=== PATIENT | female | born 1970 | race American Indian/Alaskan Native ===

== ENCOUNTER 2023-05-06 16:40 | Outpatient (CLI) | payer BC, SELFPAY | END 2023-05-06 16:41 | disposition home or self-care (01) | LOC: NFLDREF 16:41 | PROVIDERS: PCP Internal Medicine; Visit Provider Internal Medicine | DX: Z00.00 Encounter for general adult medical examination without abnormal findings (principal); E06.3 Autoimmune thyroiditis | CPT/HCPCS: 84443 ==

== ENCOUNTER 2023-05-15 06:59 | Outpatient (CLI) | payer BC, SELFPAY ==
--- NOTE | 2023-05-15 07:15 | CRLHL7_ITS ---
For Patients: As a result of the Century Cures Act, medical imaging exams and procedure reports are released immediately into your electronic medical record. You may view this report before your referring provider. If you have questions, please contact your health care provider. INDICATION: RUQ PAIN COMPARISON: none TECHNIQUE: Real time hodges scale imaging and color Doppler analysis was performed of the right upper quadrant. FINDINGS: The patient`s liver is of normal size and has increased echogenicity. There is a normal appearance of the hepatic IVC and proximal abdominal aorta. There is no evidence of ascites. The gallbladder is of normal size and there is no evidence of intraluminal stones or sludge. The gallbladder wall measures 2.0 mm in thickness. The common bile duct is of normal size and measures 6.0 mm in diameter at the level of the elizabeth hepatis. Hypoechoic solid structure adjacent to or involving the pancreatic head measuring 2.2 x 1.4 x 1.9 cm. There is no evidence of a stone or hydronephrosis within the right kidney. The right kidney measures 10.1 cm in length. IMPRESSION: Possible pancreatic head mass measuring 2.2 cm. MRI recommended for further evaluation. Gallbladder normal. Mild hepatic steatosis. Dictated by Santos Mullen MD @ 05/15/2023 11:55:27 AM (Electronically Signed)
== END 2023-05-15 07:00 | disposition home or self-care (01) ==
LOC: US 06:59
PROVIDERS: PCP Internal Medicine; Visit Provider Internal Medicine
DX: R10.11 Right upper quadrant pain (principal); K76.0 Fatty (change of) liver, not elsewhere classified
CPT/HCPCS: 76705

== ENCOUNTER 2023-05-25 17:39 | Outpatient (CLI) | payer BC, SELFPAY ==
--- NOTE | 2023-05-25 18:15 | CRLHL7_ITS ---
For Patients: As a result of the Century Cures Act, medical imaging exams and procedure reports are released immediately into your electronic medical record. You may view this report before your referring provider. If you have questions, please contact your health care provider. INDICATION: Pancreatic head abnormality. TECHNIQUE: Abdominal MRI. T1, T2 weighted and postcontrast T1 weighted imaging. Diffusion weighted imaging. Contrast: 20 cc intravenous gadolinium. COMPARISON: Ultrasound abdomen May 15, 2023. FINDINGS: Pancreas: No mass lesion. The duct is normal caliber. Liver: Non cirrhotic morphology. No mass lesion. Normal signal intensity. Gallbladder and biliary tree: Unremarkable normal caliber. Spleen, adrenal glands, and kidneys: Unremarkable. Miscellaneous: No ascites. No suspicious lymph node enlargement. Large paraesophageal hiatal hernia. IMPRESSION : 1. Unremarkable MRI of the pancreas. 2. No additional suspicious abnormalities. 3. There is a large paraesophageal hiatal hernia. Dictated by Asad Dave MD @ 05/30/2023 2:04:17 PM (Electronically Signed)
== END 2023-05-25 17:40 | disposition home or self-care (01) ==
LOC: MRI 17:41
PROVIDERS: PCP Internal Medicine; Visit Provider Internal Medicine
DX: K86.89 Other specified diseases of pancreas (principal)
CPT/HCPCS: 74183; A9575

== ENCOUNTER 2023-06-15 11:29 | Outpatient (CLI) | payer BC, SELFPAY ==
--- NOTE | 2023-06-15 12:29 | W.ANESCHARGE ---
Anesthesia Charges Start Date/Time Anesthesia Start Date: 06/15/23 Anesthesia Start Time: 12:03 Stop Date/Time Anesthesia Stop Date: 06/15/23 Anesthesia Stop Time: 12:20
== END 2023-06-15 11:30 | disposition home or self-care (01) ==
LOC: OP CLINIC 11:30
PROVIDERS: PCP Internal Medicine; Visit Provider Internal Medicine
DX: R10.13 Epigastric pain (principal); K44.9 Diaphragmatic hernia without obstruction or gangrene; K29.70 Gastritis, unspecified, without bleeding; R12 Heartburn
CPT/HCPCS: 00731; 43239; 88305; 88342; J2704

== ENCOUNTER 2023-08-25 15:47 | Emergency (ER) | payer BC, SELFPAY ==
[2023-08-25 15:52] VITALS: BP 168/101; PULSE 109; RESP 18; TEMP 37.2; O2SAT 96; BMI 37.8
--- NOTE | 2023-08-25 15:57 | ED.GENADULT ---
HPI - General Adult General Chief complaint: Epistaxis/Nosebleed Stated complaint: Nose won't stop bleeding Time Seen by Provider: 08/25/23 15:57 History of Present Illness HPI narrative: bloody nose that started 90 minutes ago 53-year-old woman presenting to the emergency department along with significant other with concern of nose bleed. Began apparently in the left nostril and went to the right and has been pouring out of her mouth. Has been bleeding now for at least an hour. She does have a headache and is feeling somewhat lightheaded. Notes a history of uncontrolled or elevated blood pressures. 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 Is not short of breath. Further questioning later reveals that she has been seen for a workup for hypertensive urgency/emergency in the emergency department. Blood pressures seem to have been elevated since diagnosis of COVID. Suspected possibly also be related to recently diagnosed large paraesophageal hiatal hernia. This does also cause her to vomit frequently. Related Data Home Medications Medication Instructions Recorded Confirmed albuterol sulfate 90 mcg/actuation 2 puff inhalation Q6H PRN wheezing 05/06/23 06/10/23 aerosol inhaler conjugated estrogens 0.3 mg tablet See Rx Instructions PO QDAY 05/06/23 06/10/23 (Premarin) famotidine 20 mg tablet 20 mg PO BID 05/06/23 06/10/23 hydrochlorothiazide 25 mg tablet 25 mg PO DAILY 05/06/23 06/10/23 levothyroxine 100 mcg tablet 100 mcg PO DAILY 05/06/23 06/10/23 lisinopril 40 mg tablet 40 mg PO DAILY 05/06/23 06/10/23 omeprazole 20 mg tablet,delayed 20 mg PO BID 05/06/23 06/10/23 release thyroid (pork) 90 mg tablet 90 mg PO DAILY 05/06/23 06/10/23 ([place] Thyroid) Previous Rx's Medication Instructions Recorded amlodipine 5 mg tablet 5 mg PO QDAY #30 tabs 05/06/23 pantoprazole 40 mg tablet,delayed 40 mg PO BID #90 tabs 06/10/23 release (Protonix) Allergies Allergy/AdvReac Type Severity Reaction Status Date / Time aspirin Allergy Severe Anaphylaxis Verified 06/10/23 16:23 bee venom protein (honey bee) Allergy Severe Anaphylaxis Verified 06/10/23 16:23 Penicillins Allergy Severe Anaphylaxis Verified 06/10/23 16:23 sumatriptan [From Imitrex] Allergy Severe Anaphylaxis Verified 06/10/23 16:23 penicillin V Allergy Intermediate Hives Verified 06/10/23 16:23 Review of Systems Status of ROS: Reports: 6 or more systems reviewed and unremarkable except as noted in History and below PFSH PFSH Medical History Gastroesophageal reflux disease ?K21.9 - Gastro-esophageal reflux disease without esophagitis (ICD-10) Pancreatic mass ?K86.89 - Other specified diseases of pancreas (ICD-10) RUQ pain ?R10.11 - Right upper quadrant pain (ICD-10) Celiac sprue ?K90.0 - Celiac disease (ICD-10) Vasomotor symptoms due to menopause ?N95.1 - Menopausal and female climacteric states (ICD-10) Urinary incontinence ?R32 - Unspecified urinary incontinence (ICD-10) Migraine headache ?G43.909 - Migraine, unspecified, not intractable, without status migrainosus (ICD-10) Irritable bowel syndrome ?K58.9 - Irritable bowel syndrome without diarrhea (ICD-10) Incomplete emptying of bladder ?R33.9 - Retention of urine, unspecified (ICD-10) Hypertension ?I10 - Essential (primary) hypertension (ICD-10) History of vitamin D deficiency ?Z86.39 - Personal history of other endocrine, nutritional and metabolic disease (ICD-10) Ovidio's thyroiditis ?E06.3 - Autoimmune thyroiditis (ICD-10) Disturbance in sleep behavior ?G47.9 - Sleep disorder, unspecified (ICD-10) Body mass index (BMI) of 35.0 to 39.9 with comorbidity in adult Asthma ?J45.909 - Unspecified asthma, uncomplicated (ICD-10) Surgical History Cystocele with rectocele ?N81.10 - Cystocele, unspecified (ICD-10) ?N81.6 - Rectocele (ICD-10) Status post surgical removal of ganglion cyst ?Z98.890 - Other specified postprocedural states (ICD-10) History of total vaginal hysterectomy (TVH) ?Z90.710 - Acquired absence of both cervix and uterus (ICD-10) History of tonsillectomy ?Z90.89 - Acquired absence of other organs (ICD-10) History of pubovaginal sling ?Z96.0 - Presence of urogenital implants (ICD-10) History of colonoscopy with polypectomy ?Z98.890 - Other specified postprocedural states (ICD-10) ?Z86.010 - Personal history of colonic polyps (ICD-10) History of bilateral breast reduction surgery ?Z98.890 - Other specified postprocedural states (ICD-10) History of appendectomy ?Z90.49 - Acquired absence of other specified parts of digestive tract (ICD-10) Family History Sister Thyroid disease Mother Thyroid disease Heart disease High blood pressure Breast cancer, Onset Age: 27 Osteoporosis Maternal Grandmother Thyroid disease Father High blood pressure Diabetes Sister High blood pressure Paternal Grandmother Breast cancer, Onset Age: 60 Social History Smoking Status: Never smoker Do you use any of these nicotine containing products: None Second hand tobacco smoke exposure: No How often do you have a drink containing alcohol: never How often do you have six or more drinks on one occasion: Never AUDIT-C Alcohol total score: 0 Non-prescribed substance use: denies use Little interest or pleasure in doing things: not at all Feeling down, depressed, or hopeless: not at all service: No Exam Narrative: Exam Narrative: I enter the room to find is makes holding a paper towel I think to her nose bending over a trash bag full of blood-stained tissues. Appears to be breathing easily other than sounding congested. Has blood in both nostrils. Reapplied her finger pressure and then ultimately packed with lightly water soaked cotton balls. Cranial nerves 2-12 are intact. Heart is tachycardic. Pending reassessment Upon reassessment there is no active bleeding in the right nostril. There is along the anterior aspect of the septum of the left nostril oozing of blood. Is difficult to visualize initially. Tabs further with cotton ball and then applied silver nitrate followed by compression with cocaine soaked cotton balls. On reexamination small amount of oozing remained which was touched with silver nitrate again. Good control of bleeding ultimately achieved. Never visualized any bleeding in the posterior oropharynx. Unfortunately did have some vomiting not inconsistent with what she has been experiencing thought to be related to this hiatal hernia. Probably triggered by blood ingestion. Did cough up a couple smaller clots as well. Had been given Zofran prior to vomiting. Did attempt to treat blood pressure with another dose of amlodipine as did remain high during time in the ER. I believe this was vomited up. Recommended to take another dose when got home. Const: Vital Signs, click to edit/add: Vital Signs - 24 hr 08/25/23 15:52 08/25/23 18:17 Temperature 99.0 F Pulse Rate [Right Pulse Oximeter] 109 H Respiratory Rate 18 Blood Pressure [Ri ght Upper Arm] 168/101 H 150/110 H Pulse Oximetry 96 Oxygen Delivery Me thod Room Air Documenting provider has reviewed patient's vital signs: yes Course Vital Signs Vital signs: Initial Vital Signs Temperature 99.0 F 08/25/23 15:52 Temperature Source Temporal Artery Scan 08/25/23 15:52 Pulse Rate 109 H 08/25/23 15:52 Respiratory Rate 18 08/25/23 15:52 Blood Pressure 168/101 H 08/25/23 15:52 Blood Pressure Mean 123 H 08/25/23 15:52 Blood Pressure Position Sitting 08/25/23 15:52 Pulse Oximetry 96 08/25/23 15:52 Oxygen Delivery Method Room Air 08/25/23 15:52 Vital Signs Temperature 99.0 F 08/25/23 15:52 Pulse Rate 109 H 08/25/23 15:52 Respiratory Rate 18 08/25/23 15:52 Blood Pressure 168/101 H 08/25/23 15:52 Pulse Oximetry 96 08/25/23 15:52 Oxygen Delivery Method Room Air 08/25/23 15:52 Temperature 99.0 F 08/25/23 15:52 Pulse Rate 109 H 08/25/23 15:52 Respiratory Rate 18 08/25/23 15:52 Blood Pressure 150/110 H 08/25/23 18:17 Pulse Oximetry 96 08/25/23 15:52 Oxygen Delivery Method Room Air 08/25/23 15:52 Medications Administered Medications: Discontinued Medications Generic Name Dose Route Start Last Admin Trade Name Freq PRN Reason Stop Dose Admin Amlodipine Besylate 5 mg 08/25/23 17:53 08/25/23 18:09 Amlodipine 5 Mg Tablet PO 08/25/23 17:54 5 mg ONCE ONE Administration Cocaine HCl 4 ml 08/25/23 16:15 08/25/23 16:35 Cocaine Hcl 4 % 4 Ml Solution NOSTRIL-B 08/25/23 16:16 4 ml ONCE ONE Administration Ondansetron HCl 4 mg 08/25/23 17:36 08/25/23 18:09 Ondansetron Odt 4 Mg Tab PO 08/25/23 17:37 4 mg ONCE ONE Administration Medical Decision Making MDM Narrative Medical decision making narrative: Over time in the emergency department does develop headache/pain around her left eye. Typical headaches for her with migraine diagnosis for which she takes a believe Zomig and Topamax? tend to be more frontal? Re-examination reveals tense and sore diffuse paracervical and trapezial musculature. Given cotton balls and nose clamp for home. See patient discharge plan for further discussion. Discharge Plan Discharge Clinical Impression: Anterior epistaxis, Muscle tension pain, High blood pressure Patient Disposition: Home w/ Parent or Adult Condition: Improved Additional Instructions: Do your best to stay well-hydrated. See handout for stretches for upper back pain/tension that might be beneficial to do daily or twice daily. If this bleeding recurs, soak cotton ball with Afrin and place in affected nostril; might be able to place 2 in the bleeding side and 1 or 2 in the other. Then clamp with nose clamp. If not getting control within an hour or really bleeding heavily, be seen. Barb from [employer] Might consider taking your blood pressure medicines in the morning if tolerated particularly the amlodipine and hydrochlorothiazide. Another amlodipine dose could be taken in the evening for total of 10 mg per day. Prescriptions: No Action levothyroxine 100 mcg tablet 100 mcg PO DAILY thyroid (pork) [[place] Thyroid] 90 mg tablet 90 mg PO DAILY hydrochlorothiazide 25 mg tablet 25 mg PO DAILY lisinopril 40 mg tablet 40 mg PO DAILY famotidine 20 mg tablet 20 mg PO BID albuterol sulfate 90 mcg/actuation HFA aerosol inhaler 2 puff inhalation Q6H PRN (Reason: wheezing) omeprazole 20 mg tablet,delayed release (DR/EC) 20 mg PO BID Premarin 0.3 mg tablet See Rx Instructions PO QDAY Rx Instructions: orally every day; cyclically amlodipine 5 mg tablet 5 mg PO QDAY Qty: 30 3RF pantoprazole [Protonix] 40 mg tablet,delayed release (DR/EC) 40 mg PO BID Qty: 90 2RF Follow Up/Referrals: Eddie Martinez MD [Primary Care Provider] - Stand Alone Forms: [facility] Info Instructions Procedures Epistaxis Control Time Out Performed: No Nostril: Yes left Nose prepped with: Yes cocaine 4% and Yes other (Cotton balls and nose clamp) Direct inspection: Yes unable to visualize (Initially unable to visualize.) and Yes anterior source identified Direct inspection method: Yes headlamp and Yes otoscope Clots removed by: Yes manually (dabbing w/ cotton ball & pt coughing up. no post op clots or blood) Epistaxis treatment: Yes silver nitrate cautery Results of treatment: Yes bleeding controlled Estimated blood loss (if any): other (specify) (2 mLs. Though numerous stained tissues on bag upon arrival) Complications: Yes none (Silver nitrate stung a little) Conclusion: patient tolerated procedure
[2023-08-25] MEDS: COCAINE HCL 4 % 4 ML SOLUTION NOSTRIL-B (16:35)
[2023-08-25] MEDS: ONDANSETRON ODT 4 MG TAB PO (18:09)
[2023-08-25] MEDS: AMLODIPINE 5 MG TABLET PO (18:09)
[2023-08-25 18:17] VITALS: BP 150/110
== END 2023-08-25 19:08 | disposition home or self-care (01) ==
PROVIDERS: Emergency Provider Family Medicine; PCP Internal Medicine
DX: R04.0 Epistaxis (principal)
CPT/HCPCS: 30901; 99283; 99284; A9270